=== PATIENT | female | born 1960 | race Asian ===

== ENCOUNTER 2018-04-19 08:34 | Outpatient (CLI) | payer OTHER ==
[2018-04-19 15:29] LABS: PLATELET COUNT 312 K/uL (152-353)
[2018-04-19 15:45] LABS: POTASSIUM 4.8 mmol/L (3.6-5.2)
== END 2018-04-19 19:41 | disposition home or self-care (01) ==
LOC: LAB 08:34 → RESP 08:34
PROVIDERS: Nurse Practitioner Family
DX: Z00.00 Encounter for general adult medical examination without abnormal findings (principal); Z79.899 Other long term (current) drug therapy; R53.82 Chronic fatigue, unspecified; I26.99 Other pulmonary embolism without acute cor pulmonale; H40.9 Unspecified glaucoma; M54.2 Cervicalgia; Z01.818 Encounter for other preprocedural examination
CPT/HCPCS: 80053; 80061; 83036; 84439; 84443; 85027; 93005

== ENCOUNTER 2019-05-20 12:55 | Outpatient (CLI) | payer OTHER | END 2019-05-20 19:42 | disposition home or self-care (01) | LOC: MAMMO 12:55 | DX: Z12.31 Encounter for screening mammogram for malignant neoplasm of breast (principal) ==

== ENCOUNTER 2021-07-15 10:29 | Outpatient (CLI) | payer OTHER | END 2021-07-15 19:13 | disposition home or self-care (01) | LOC: MRI 10:29 | PROVIDERS: ATTEND Nurse Practitioner Family | DX: R41.3 Other amnesia (principal) ==

== ENCOUNTER 2021-10-11 19:11 | Emergency (ER) | payer OTHER ==
[~2021-10-11] VITALS: Ht 157.5 cm; Wt 53.5 kg
[2021-10-11] MEDS ORDERED: ENOXAPARIN40 MG/0.1 SC (19:47)
[2021-10-11 20:04] LABS: PLATELET COUNT 291 K/uL (152-353)
[2021-10-11 20:13] LABS: POTASSIUM 3.6 mmol/L (3.6-5.2)
[2021-10-11 20:39] LABS: PARTIAL THROMBOPLASTIN TIME 24.1 SECONDS (24.5-33.6)
[2021-10-11 21:50] VITALS: BP 153/76; TEMP 98.2
== END 2021-10-11 21:50 | disposition home or self-care (01) ==
LOC: ED 19:11
PROVIDERS: Hospitalist
DX: R07.89 Other chest pain (principal); J44.9 Chronic obstructive pulmonary disease, unspecified; F17.210 Nicotine dependence, cigarettes, uncomplicated; I50.9 Heart failure, unspecified
CPT/HCPCS: 36415; 80053; 81000; 82550; 83880; 84484; 85027; 85379; 85610; 85730; 93005; 96374; 96375; 99284; J1940; J2270; J2405; Q9963

== ENCOUNTER 2021-11-18 18:19 | Emergency (ER) | payer OTHER ==
[~2021-11-18] VITALS: Ht 157.5 cm; Wt 51.3 kg
[~2021-11-18 18:19] MED LIST: ENOXAPARIN40 MG/0.1 SC
[2021-11-18 18:25] VITALS: TEMP 97.1
[2021-11-18 19:19] LABS: PLATELET COUNT 226 K/uL (152-353)
[2021-11-18 19:32] LABS: POTASSIUM 3.5 mmol/L (3.6-5.2); SODIUM 140 mmol/L (136-145)
[2021-11-18 21:30] VITALS: BP 115/82
== END 2021-11-18 21:30 | disposition home or self-care (01) ==
LOC: ED 18:19
PROVIDERS: Emergency Medicine Emergency Medical Services
DX: R10.11 Right upper quadrant pain (principal); R10.13 Epigastric pain; M48.56XA Collapsed vertebra, not elsewhere classified, lumbar region, initial encounter for fracture; M85.88 Other specified disorders of bone density and structure, other site
CPT/HCPCS: 36415; 80053; 81002; 82150; 83690; 84484; 85027; 93005; 96360; 96374; 96375; 96376; 99284; J2270; J2405; J3490; Q9963

== ENCOUNTER 2021-11-27 12:26 | Outpatient (CLI) | payer OTHER | END 2021-11-27 19:44 | disposition home or self-care (01) | LOC: LABW 12:26 | PROVIDERS: ATTEND Nurse Practitioner Family | DX: R10.84 Generalized abdominal pain (principal) | CPT/HCPCS: 36415; 86677 ==

== ENCOUNTER 2022-04-25 03:31 | Emergency (ER) | payer OTHER ==
[~2022-04-25] VITALS: Ht 157.5 cm; Wt 56.7 kg
[2022-04-25 03:40] VITALS: TEMP 100.3
[2022-04-25 05:16] VITALS: BP 154/76
== END 2022-04-25 05:17 | disposition home or self-care (01) ==
LOC: ED 03:31
DX: U07.1 COVID-19 (principal)
CPT/HCPCS: 87502; 87635; 87651; 99283; U0003

== ENCOUNTER 2022-06-19 09:03 | Outpatient (CLI) | payer OTHER | END 2022-06-19 18:56 | disposition home or self-care (01) | LOC: RESP 09:03 | PROVIDERS: ATTEND Specialist | DX: I10 Essential (primary) hypertension (principal); E78.2 Mixed hyperlipidemia; I82.409 Acute embolism and thrombosis of unspecified deep veins of unspecified lower extremity; I26.99 Other pulmonary embolism without acute cor pulmonale; R55 Syncope and collapse; R00.2 Palpitations ==

== ENCOUNTER 2022-07-03 11:32 | Outpatient (CLI) | payer OTHER | END 2022-07-03 21:46 | disposition home or self-care (01) | LOC: US 11:32 | PROVIDERS: ATTEND Internal Medicine | DX: M79.604 Pain in right leg (principal) ==

== ENCOUNTER → 2022-10-04 20:54 | Emergency (ER) | payer OTHER | LOC: ED 20:54 | DX: Z53.21 Procedure and treatment not carried out due to patient leaving prior to being seen by health care provider (principal) | CPT/HCPCS: 99281 ==